=== PATIENT | female | born 1995 | race African-American/Black ===

== ENCOUNTER 2019-12-08 12:31 | Emergency (ER) | payer SELFPAY ==
[2019-12-08 12:54] VITALS: BMI 39.9
--- NOTE | 2019-12-08 14:11 | PDOC ---
History of Present Illness - General History Source: Patient Exam Limitations: No Limitations - History of Present Illness Initial Comments: 12/08/19 14:15 24 yo F G6, 2 living children, 2 terminations, 1 miscarriage, LMP 10/10/19 c/o pelvic cramping x 2 weeks. Denies back pain, vaginal bleeding, vaginal discharge, urinary complaints, recent illness. Has first OB appointment scheduled for December 18, 2019. Patient reports passing gas and having normal bowel movements. ROS: GENERAL/CONSTITUTIONAL: No fever, chills, weakness, dizziness HEAD, EYES, EARS, NOSE AND THROAT: No changes in vision, No ear pain or discharge, No sore throat CARDIOVASCULAR: No chest pain RESPIRATORY: No shortness of breath or cough GASTROINTESTINAL: Abdominal cramping, nausea, vomiting, diarrhea or constipation GENITOURINARY: No dysuria MUSCULOSKELETAL: No neck or back pain SKIN: No rash NEUROLOGIC: No headache, vertigo, loss of consciousness, or loss of sensation PE: GENERAL: well-appearing, NAD HEAD: NCAT EYES: Pupils equal, round and reactive to light, sclera anicteric, conjunctiva clear ENT: pharynx: no erythema, no exudate, uvula midline NECK: supple CHEST: nontender RESP: clear, no w/r/r CARDIO: rrr, no m/g/r ABD: +BS, soft, nontender, non distended BACK: no midline spinal ttp, no CVAT EXTREMITIES: Normal range of motion, no edema NEUROLOGICAL: Normal speech, normal gait SKIN: Warm, Dry Is this a multiple visit Asthma Patient?: No <Maria Isabel Carlson - Last Filed: 12/08/19 15:57> <Tomás Dunn - Last Filed: 12/08/19 16:43> - General Chief Complaint: Pain Stated Complaint: POS PREG Time Seen by Provider: 12/08/19 13:32 Past History - Past Medical History Asthma: No Cancer: No Cardiac Disorders: No Diabetes: No HTN: No Seizures: No Thyroid Disease: No - Reproductive History Is Patient Now?: Yes (#): 6 Para: 2 Therapeutic (s) & number: Yes (2) Spontaneous : 1 - Immunization History Immunization Up to Date: Yes - Psycho Social/Smoking Cessation Hx Smoking Status: No Smoking History: Never smoked Have you smoked in the past 12 months: No Number of Cigarettes Smoked Daily: 0 Information on smoking cessation initiated: No Hx Alcohol Use: No Drug/Substance Use Hx: No Hx Substance Use Treatment: No <Maria Isabel Carlson - Last Filed: 12/08/19 15:57> <Tomás Dunn - Last Filed: 12/08/19 16:43> - Past Medical History Allergies/Adverse Reactions: Allergies Allergy/AdvReac Type Severity Reaction Status Date / Time No Known Allergies Allergy Verified 12/08/19 12:50 Home Medications: Ambulatory Orders No Home Medications 0 dose .ROUTE UTDICT 11/20/13 *Physical Exam - Vital Signs Last Vital Signs Temp Pulse Resp BP Pulse Ox 98.1 F 82 18 107/66 100 12/08/19 12:50 12/08/19 12:50 12/08/19 12:50 12/08/19 12:50 12/08/19 12:50 <Maria Isabel Carlson - Last Filed: 12/08/19 15:57> - Vital Signs Last Vital Signs Temp Pulse Resp BP Pulse Ox 98.1 F 82 18 107/66 100 12/08/19 12:50 12/08/19 12:50 12/08/19 12:50 12/08/19 12:50 12/08/19 12:50 <Tomás Dunn - Last Filed: 12/08/19 16:43> ED Treatment Course - LABORATORY CBC & Chemistry Diagram: 12/08/19 14:10 12/08/19 14:10 - RADIOLOGY Radiology Studies Ordered: Category Date Time Status TRANSVAGINAL US PREG [US] Stat Ultrasound 12/08/19 14:00 Ordered <Maria Isabel Carlson - Last Filed: 12/08/19 15:57> - LABORATORY CBC & Chemistry Diagram: 12/08/19 14:10 12/08/19 14:10 - ADDITIONAL ORDERS Additional order review: Laboratory Results 12/08/19 12/08/19 12/08/19 14:10 14:10 14:10 PT with INR 12.10 INR 1.03 PTT (Actin FS) 30.2 Sodium 140 Potassium 4.1 Chloride 110 H Carbon Dioxide 22 Anion Gap 7 L BUN 10.7 Creatinine 0.7 Est GFR (CKD-EPI)AfAm 140.55 Est GFR (CKD-EPI)NonAf 121.27 Random Glucose 81 Calcium 9.0 Total Bilirubin 0.2 AST 15 ALT 25 Alkaline Phosphatase 65 Total Protein 7.4 Albumin 3.4 Beta HCG, Quant 5402.1 Urine Color Yellow Urine Appearance Clear Urine pH 6.0 Ur Specific [place] 1.033 Urine Protein Negative Urine Glucose (UA) Negative Urine Ketones Negative Urine Blood Negative Urine Nitrite Negative Urine Bilirubin Negative Urine Urobilinogen 1.0 Ur Leukocyte Esterase Negative 12/08/19 14:10 RBC 4.11 MCV 89.9 MCHC 34.4 RDW 13.2 MPV 8.0 Neutrophils % 63.8 Lymphocytes % 27.8 Monocytes % 6.9 Eosinophils % 0.6 Basophils % 0.9 <Tomás Dunn - Last Filed: 12/08/19 16:43> Medical Decision Making - Medical Decision Making 12/08/19 14:19 24-year-old female LMP October 10, 2019 reports 2+ home test 2 weeks ago. G6, 2 living children, 2 terminations, 1 miscarriage, this is a wanted . Presents today complaining of abdominal cramping x2 weeks denies vaginal bleeding, vaginal discharge, back pain or urinary complaints. Has her first OB appointment December 18, 2019. Labs including beta hCG Transvaginal ultrasound Reassess 12/08/19 15:58 <Maria Isabel Carlson - Last Filed: 12/08/19 15:57> - Medical Decision Making 12/08/19 16:43 I reviewed the case of the mid-level practitioner and was available for consultation while in the emergency department <Tomás Dunn - Last Filed: 12/08/19 16:43> Discharge - Discharge Information Problems reviewed: Yes - Admission No <Maria Isabel Carlson - Last Filed: 12/08/19 15:57> <Tomás Dunn - Last Filed: 12/08/19 16:43> - Discharge Information Clinical Impression/Diagnosis: Abdominal pain affecting
[2019-12-08 14:36] LABS: BASO % 0.9 % (0-2.0); EOS % 0.6 % (0-4.5); HEMOGLOBIN 12.7 GM/dL (10.7-15.3); LYMPH % 27.8 % (8-40); MCH 30.9 pg (25.7-33.7); MCHC 34.4 g/dl (32.0-36.0); MEAN CELL VOLUME 89.9 fl (80-96); MONO % 6.9 % (3.8-10.2); NEUT % 63.8 % (42.8-82.8); PLATELET COUNT 301 K/MM3 (134-434); RBC 4.11 M/mm3 (3.60-5.2); RDW 13.2 % (11.6-15.6); WHITE BLOOD COUNT 8.3 K/mm3 (4.0-10.0)
[2019-12-08 14:50] LABS: INR 1.03 (0.83-1.09); PROTHROMBIN TIME (PATIENT) 12.1 SEC (9.7-13.0)
[2019-12-08 14:52] LABS: ACTIVATED PTT 30.2 SECONDS (25.2-36.5)
[2019-12-08 15:13] LABS: URINE APPEARANCE CLEAR; URINE BILIRUBIN NEGATIVE (NEGATIVE); URINE COLOR YELLOW; URINE GLUCOSE (UA) NEGATIVE (NEGATIVE); URINE KETONE NEGATIVE (NEGATIVE); URINE LEUK ESTERASE NEGATIVE (NEGATIVE); URINE NITRITE NEGATIVE (NEGATIVE); URINE PROTEIN NEGATIVE (NEGATIVE)
[2019-12-08 15:25] LABS: ALBUMIN 3.4 g/dl (3.4-5.0); BILIRUBIN,TOTAL 0.2 mg/dL (0.2-1); BLOOD UREA NITROGEN 10.7 mg/dL (7-18); CREATININE 0.7 mg/dL (0.55-1.3); POTASSIUM 4.1 mmol/L (3.5-5.1); TOT PROT 7.4 g/dl (6.4-8.2)
--- NOTE | 2019-12-08 16:39 | PDOC ---
*Physical Exam - Vital Signs Last Vital Signs Temp Pulse Resp BP Pulse Ox 98.1 F 82 18 107/66 100 12/08/19 12:50 12/08/19 12:50 12/08/19 12:50 12/08/19 12:50 12/08/19 12:50 - Physical Exam General Appearance: Yes: Nourished, Appropriately Dressed. No: Apparent Distress Gastrointestinal/Abdominal: positive: Normal Bowel Sounds, Flat, Soft. negative: Tender ED Treatment Course - LABORATORY CBC & Chemistry Diagram: 12/08/19 14:10 12/08/19 14:10 - ADDITIONAL ORDERS Additional order review: Laboratory Results 12/08/19 12/08/19 12/08/19 14:10 14:10 14:10 PT with INR 12.10 INR 1.03 PTT (Actin FS) 30.2 Sodium 140 Potassium 4.1 Chloride 110 H Carbon Dioxide 22 Anion Gap 7 L BUN 10.7 Creatinine 0.7 Est GFR (CKD-EPI)AfAm 140.55 Est GFR (CKD-EPI)NonAf 121.27 Random Glucose 81 Calcium 9.0 Total Bilirubin 0.2 AST 15 ALT 25 Alkaline Phosphatase 65 Total Protein 7.4 Albumin 3.4 Beta HCG, Quant 5402.1 Urine Color Yellow Urine Appearance Clear Urine pH 6.0 Ur Specific [place] 1.033 Urine Protein Negative Urine Glucose (UA) Negative Urine Ketones Negative Urine Blood Negative Urine Nitrite Negative Urine Bilirubin Negative Urine Urobilinogen 1.0 Ur Leukocyte Esterase Negative 12/08/19 14:10 RBC 4.11 MCV 89.9 MCHC 34.4 RDW 13.2 MPV 8.0 Neutrophils % 63.8 Lymphocytes % 27.8 Monocytes % 6.9 Eosinophils % 0.6 Basophils % 0.9 Medical Decision Making - Medical Decision Making 12/08/19 16:29 Signout was received from [facility] put on at 1600 hrs. In brief patient came in for abdominal cramping in early . Beta hCG is just over 5000. Ultrasound shows a single IUP without yolk sac or pole. Threatened versus early . Patient has follow-up with her [facility] on 315. We will discharge home at this time with strict return precautions. I discussed the physical exam findings, ancillary test results and final diagnoses with the patient. I answered all of the patient's questions. The patient was satisfied with the care received and felt comfortable with the discharge plan and treatment plan. The Patient agrees to follow up with the primary care physician/specialist within 24-72 hours. Return precautions were given. Discharge - Discharge Information Problems reviewed: Yes Clinical Impression/Diagnosis: Abdominal pain affecting Condition: Stable Disposition: HOME - Admission No - Follow up/Referral Referrals: Gagan Castillo MD [Staff Physician] - - Patient Discharge Instructions Patient Printed Discharge Instructions: DI for Abdominal Pain -- Early Additional Instructions: You were evaluated for your abdominal pain today. Your ultrasound shows a about 6 weeks within the uterus. You were given a copy of your ultrasound report You also have a cyst. Please keep your appointment with your [facility] for 12/17 Return to the ER for vaginal bleeding, increased pain, vomiting, lightheadedness or if you have any changes in your symptoms - Post Discharge Activity Work/Back to School Note: Back to Work
[2019-12-08 17:00] VITALS: BP 108/62; PULSE 83; TEMP 98.4
== END 2019-12-08 16:49 | disposition home or self-care (01) ==
LOC: JER 12:31
DX: O26.891 Other specified pregnancy related conditions, first trimester (principal); Z3A.01 Less than 8 weeks gestation of pregnancy
CPT/HCPCS: 36415; 76817-TC; 80053; 81003; 84702; 85025; 85610; 85730; 99284-25

== ENCOUNTER 2023-03-08 22:15 | Emergency (ER) | payer OTHER ==
[2023-03-08 22:25] VITALS: BP 139/105; PULSE 114; RESP 20; BMI 41.5
[2023-03-08] MEDS ORDERED: LIDOCAINE 1%/EPI 1:100000 (50 ML MULTI DOSE VIAL) ONE (22:25)
== END 2023-03-08 23:37 | disposition home or self-care (01) ==
LOC: JER 22:15
PROC: 0HQ0XZZ Repair Scalp Skin, External Approach (ICD-10-PCS; principal; 2023-03-08)
DX: S01.01XA Laceration without foreign body of scalp, initial encounter (principal); W18.2XXA Fall in (into) shower or empty bathtub, initial encounter; Y93.E1 Activity, personal bathing and showering; Y92.002 Bathroom of unspecified non-institutional (private) residence as the place of occurrence of the external cause
CPT/HCPCS: 99283-25

== ENCOUNTER 2023-03-18 15:46 | Emergency (ER) | payer OTHER ==
[2023-03-18 16:03] VITALS: BP 123/73; PULSE 91; RESP 18; TEMP 98; BMI 41.1
== END 2023-03-18 18:09 | disposition home or self-care (01) ==
LOC: JER 15:46
DX: Z48.02 Encounter for removal of sutures (principal); L03.115 Cellulitis of right lower limb
CPT/HCPCS: 99283-25

== ENCOUNTER 2025-06-14 15:53 | Emergency (ER) | payer OTHER ==
[2025-06-14 16:15] VITALS: BP 119/52; PULSE 76; RESP 18; TEMP 98; BMI 42.9
[2025-06-14] MEDS ORDERED: FAMOTIDINE 20 MG TABLET ONE (16:37)
[2025-06-14] MEDS ORDERED: DEXAMETHASONE SOD PHOSPHATE 10 MG/1 ML VIAL ONE ×2 (16:37)
[2025-06-14] MEDS: DEXAMETHASONE SOD PHOSPHATE 10 MG/1 ML VIAL IM ONE (16:43)
[2025-06-14] MEDS: FAMOTIDINE 20 MG TABLET PO ONE (16:43)
== END 2025-06-14 17:30 | disposition home or self-care (01) ==
LOC: JER 15:53 → JERFT 15:53 → JER 17:30
PROC: 3E023GC Introduction of Other Therapeutic Substance into Muscle, Percutaneous Approach (ICD-10-PCS; principal; 2025-06-14)
DX: L23.9 Allergic contact dermatitis, unspecified cause (principal); L29.9 Pruritus, unspecified; R21 Rash and other nonspecific skin eruption
CPT/HCPCS: 99284-25; J1100